=== PATIENT | male | born 1945 | race Caucasian/White ===

== ENCOUNTER 2020-07-13 23:52 | Inpatient (IN) | payer BC, MEDICARE, OTHER ==
[~2020-07-13] VITALS: Ht 176.5 cm; Wt 132.7 kg
[2020-07-14] MEDS ORDERED: methylPREDNISolone SOD SUCC 125 MG/2 ML VL IV ONE (00:30)
[2020-07-14] MEDS ORDERED: DOXYCYCLINE 100MG/250ML 250 ML IV ONE (00:30)
[2020-07-14 01:50] LABS: Basophils # (auto) 0 10 ^3/uL (0-0.2); Basophils % (auto) 0.1 % (0.0-2.0); Eosinophils # (auto) 0 10 ^3/uL (0-0.8); Hematocrit 39.2 % (41.0-53.0); Lymphocytes # (auto) 0.5 10 ^3/uL (0.4-5.4); Lymphocytes % (auto) 6.9 % (10.0-50.0); Mean Corpuscular Hemoglobin 31.1 pg (28.0-32.0); Mean Corpuscular Hgb Conc. 33.2 g/dL (32.0-36.0); Mean Corpuscular Volume 93.6 fL (80.0-100.0); Monocytes # (auto) 0.5 10 ^3/uL (0-1.3); Nucleated Red Blood Cells % 0.1 %; Platelet Count (auto) 160 10^3/uL (140-450); Red Blood Cells 4.19 10^6/uL (4.5-5.90); Red Cell Distribution Width 14.9 % (11.8-14.3)
[2020-07-14 02:06] LABS: INR 1.84 (0.9-1.15); Partial Thromboplastin Time 51.8 sec (23.0-31.2)
[2020-07-14 02:13] LABS: Alanine Aminotransferase 18 U/L (16-61); Albumin 2.7 g/dL (3.4-5.0); Anion Gap 8 (5-15); Aspartate Aminotransferase 40 U/L (15-37); BUN/Creatinine Ratio 19.1; Blood Urea Nitrogen 25 mg/dL (7-18); Calcium 7.9 mg/dL (8.5-10.1); Carbon Dioxide 24 mmol/L (21-32); Chloride 101 mmol/L (98-107); GFR African American 69 mL/min; GFR Non-African American 57 mL/min; Glucose 141 mg/dL (74-106); Sodium 133 mmol/L (136-145)
[2020-07-14 02:18] LABS: Alkaline Phosphatase 70 U/L (45-117); Bilirubin, Total 0.4 mg/dL (0.2-1.0); Total Protein 6.7 g/dL (6.4-8.2)
[2020-07-14] MEDS ORDERED: NITROGLYCERIN 0.4 MG SL TAB SL PRN ×2 (07:30→10:15)
[2020-07-14] MEDS ORDERED: DEXTROSE (50%) 50ML SYRG IV PRN ×2 (07:30→11:00)
[2020-07-14] MEDS ORDERED: DOCUSATE SOD 100 MG CAP PO PRN ×2 (07:30→10:15)
[2020-07-14] MEDS ORDERED: MORPHINE SULF INJ 2 MG/ML SYRINGE 1ML IV PRN ×2 (07:30→10:15)
[2020-07-14] MEDS ORDERED: ALBUTEROL SULF HFA 90MCG INH 200DOSE IN PRN (07:30)
[2020-07-14] MEDS ORDERED: ACETAMINOPHEN 500 MG TAB PO PRN ×2 (07:30→10:15)
[2020-07-14] MEDS ORDERED: ONDANSETRON HCL 4 MG/2 ML VIAL IV PRN ×2 (07:30→10:15)
[2020-07-14] MEDS ORDERED: HYDROcodone-ACET 5/325MG TAB PO PRN (07:30)
[2020-07-14 08:53] LABS: Cholesterol 85 mg/dL (< 200); HDL Cholesterol 43 mg/dL (40-59); LDL Cholesterol 40 mg/dL (< 100); Triglycerides 70 mg/dL (< 150)
[2020-07-14] MEDS ORDERED: CHOLECALCIFEROL (VITD3) 2,000 UNIT CAP/TAB PO SCH (10:00)
[2020-07-14] MEDS ORDERED: ZINC SULFATE 220mg CAP or TAB PO SCH (10:00)
[2020-07-14] MEDS ORDERED: ASCORBIC ACID 1,000 MG TAB PO SCH (10:00)
[2020-07-14] MEDS ORDERED: DexAMETHasone SOD PHOS 10MG/1ML VIAL INJ IV SCH (10:00)
[2020-07-14] MEDS: FAMOTIDINE (10MG/ML) 2ML VL IV SCH ×2 (10:07→20:40)
[2020-07-14] MEDS: HEPARIN SODIUM (PORCINE) 5000 UNITS/ML 1ML VIAL SC SCH ×2 (10:08→20:34)
[2020-07-14] MEDS: MULTIPLE VITAMIN TAB PO SCH (10:08)
[2020-07-14] MEDS: DOXYCYCLINE 100MG/250ML 250 ML IV SCH ×2 (10:08→20:40)
[2020-07-14] MEDS: ASPirin 81 mg TAB PO SCH (10:08)
[2020-07-14] MEDS ORDERED: RIV15T PO (10:20)
[2020-07-14 10:35] LABS: Basophils # (auto) 0 10 ^3/uL (0-0.2); Basophils % (auto) 0.2 % (0.0-2.0); Eosinophils # (auto) 0 10 ^3/uL (0-0.8); Lymphocytes # (auto) 0.3 10 ^3/uL (0.4-5.4); Lymphocytes % (auto) 5.5 % (10.0-50.0); Mean Corpuscular Hemoglobin 31.6 pg (28.0-32.0); Mean Corpuscular Hgb Conc. 34.1 g/dL (32.0-36.0); Mean Corpuscular Volume 92.9 fL (80.0-100.0); Monocytes # (auto) 0.2 10 ^3/uL (0-1.3); Monocytes % (auto) 2.7 % (0.0-12.0); Neutrophils # (auto) 5.3 10 ^3/uL (1.6-8.6); Neutrophils % (auto) 91.6 % (37.0-80.0); Platelet Count (auto) 163 10^3/uL (140-450); Red Blood Cells 4.41 10^6/uL (4.5-5.90); Red Cell Distribution Width 15.2 % (11.8-14.3); White Blood Cell 5.8 10^3/uL (4.4-10.8)
[2020-07-14] MEDS ORDERED: ACCU-CHEK COMFORT CURVE STRIP VI SCH (11:30)
[2020-07-14] MEDS ORDERED: InsuLIN REG 1unit/0.01ml Soln (100units/ml) SC SCH ×2 (11:30→22:00)
[2020-07-14] MEDS: ACCU-CHEK COMFORT CURVE STRIP VI SCH ×3 (11:48→22:30)
[2020-07-14 12:10] LABS: Albumin 2.7 g/dL (3.4-5.0); Calcium 8.1 mg/dL (8.5-10.1); Magnesium 2.3 mg/dL (1.6-2.6); Potassium 4.4 mmol/L (3.5-5.1)
[2020-07-14] MEDS: InsuLIN REG 1unit/0.01ml Soln (100units/ml) SC SCH ×3 (12:11→21:25)
[2020-07-14 12:13] LABS: BUN/Creatinine Ratio 22.8; Bilirubin, Total 0.4 mg/dL (0.2-1.0); Total Protein 7.2 g/dL (6.4-8.2)
[2020-07-14] MEDS: BUDESONIDE (INHALATION) 180 MCG IH IN SCH ×2 (12:51→19:19)
[2020-07-14] MEDS ORDERED: REMDESIVIR PER PHARMACY 0 ML IV SCH (15:15)
[2020-07-14] MEDS ORDERED: REMDESIVIR 200 MG in NS 210ml LOADING DOSE ADULT IV ONE (17:00)
[2020-07-14] MEDS ORDERED: guaiFENesin 200 MG/10 ML UD PO PRN (18:45)
[2020-07-14] MEDS: ALBUTEROL SULF HFA 90MCG INH 200DOSE IN PRN (19:19)
[2020-07-14] MEDS: FUROSEMIDE 20 MG/2 ML VIAL IV SCH (20:39)
[2020-07-15] MEDS ORDERED: METOPROLOL TARTRATE 50 MG TAB PO ONE (05:30)
[2020-07-15 06:21] LABS: Basophils # (auto) 0 10 ^3/uL (0-0.2); Basophils % (auto) 0.1 % (0.0-2.0); Eosinophils # (auto) 0 10 ^3/uL (0-0.8); Hematocrit 42.9 % (41.0-53.0); Hemoglobin 14.3 g/dL (13.5-17.5); Lymphocytes # (auto) 0.8 10 ^3/uL (0.4-5.4); Mean Corpuscular Hemoglobin 31.4 pg (28.0-32.0); Mean Corpuscular Hgb Conc. 33.4 g/dL (32.0-36.0); Mean Corpuscular Volume 93.8 fL (80.0-100.0); Monocytes # (auto) 0.9 10 ^3/uL (0-1.3); Monocytes % (auto) 5.1 % (0.0-12.0); Neutrophils # (auto) 15.1 10 ^3/uL (1.6-8.6); Neutrophils % (auto) 89.8 % (37.0-80.0); Platelet Count (auto) 204 10^3/uL (140-450); Red Blood Cells 4.57 10^6/uL (4.5-5.90); White Blood Cell 16.8 10^3/uL (4.4-10.8)
[2020-07-15 06:24] LABS: Albumin 2.9 g/dL (3.4-5.0); Calcium 8.4 mg/dL (8.5-10.1); Potassium 4.2 mmol/L (3.5-5.1)
[2020-07-15 06:29] LABS: BUN/Creatinine Ratio 26.2; Bilirubin, Total 0.4 mg/dL (0.2-1.0); Total Protein 7.5 g/dL (6.4-8.2)
[2020-07-15] MEDS: ACCU-CHEK COMFORT CURVE STRIP VI SCH ×4 (06:33→22:03)
[2020-07-15] MEDS: InsuLIN REG 1unit/0.01ml Soln (100units/ml) SC SCH ×4 (06:34→22:03)
[2020-07-15] MEDS: BUDESONIDE (INHALATION) 180 MCG IH IN SCH ×2 (07:59→19:30)
[2020-07-15] MEDS: ALBUTEROL SULF HFA 90MCG INH 200DOSE IN PRN ×2 (07:59→19:30)
[2020-07-15] MEDS: DexAMETHasone SOD PHOS 10MG/1ML VIAL INJ IV SCH (08:01)
[2020-07-15] MEDS: FUROSEMIDE 20 MG/2 ML VIAL IV SCH ×2 (08:01→22:07)
[2020-07-15] MEDS: CHOLECALCIFEROL (VITD3) 2,000 UNIT CAP/TAB PO SCH (08:02)
[2020-07-15] MEDS: MULTIPLE VITAMIN TAB PO SCH (08:02)
[2020-07-15] MEDS: ASPirin 81 mg TAB PO SCH (08:02)
[2020-07-15] MEDS: FAMOTIDINE (10MG/ML) 2ML VL IV SCH ×2 (08:02→22:05)
[2020-07-15] MEDS: ASCORBIC ACID 1,000 MG TAB PO SCH (08:02)
[2020-07-15] MEDS: ZINC SULFATE 220mg CAP or TAB PO SCH (08:02)
[2020-07-15] MEDS: DOXYCYCLINE 100MG/250ML 250 ML IV SCH ×2 (08:02→21:58)
[2020-07-15] MEDS: METOPROLOL TARTRATE 50 MG TAB PO SCH ×2 (08:02→22:00)
[2020-07-15] MEDS: HEPARIN SODIUM (PORCINE) 5000 UNITS/ML 1ML VIAL SC SCH ×2 (08:03→22:00)
[2020-07-15] MEDS: REMDESIVIR 100mg 100 MG in SODIUM CHL 0.9% 230 ML IV SCH (15:45)
[2020-07-15 16:00] VITALS: BP 123/80
[2020-07-15] MEDS ORDERED: TEMAZEPAM 15 MG CAP PO ONE (20:30)
[2020-07-16] VITALS: BP 98/77
[2020-07-16 05:45] LABS: Basophils # (auto) 0 10 ^3/uL (0-0.2); Eosinophils # (auto) 0 10 ^3/uL (0-0.8); Hematocrit 39.9 % (41.0-53.0); Hemoglobin 13.4 g/dL (13.5-17.5); Lymphocytes # (auto) 0.7 10 ^3/uL (0.4-5.4); Lymphocytes % (auto) 4.2 % (10.0-50.0); Mean Corpuscular Hemoglobin 31.3 pg (28.0-32.0); Mean Corpuscular Hgb Conc. 33.6 g/dL (32.0-36.0); Mean Corpuscular Volume 93.2 fL (80.0-100.0); Monocytes # (auto) 0.8 10 ^3/uL (0-1.3); Monocytes % (auto) 4.6 % (0.0-12.0); Neutrophils # (auto) 15.8 10 ^3/uL (1.6-8.6); Neutrophils % (auto) 91.2 % (37.0-80.0); Platelet Count (auto) 210 10^3/uL (140-450); Red Blood Cells 4.27 10^6/uL (4.5-5.90); Red Cell Distribution Width 15.3 % (11.8-14.3); White Blood Cell 17.4 10^3/uL (4.4-10.8)
[2020-07-16 06:05] LABS: Potassium 4.5 mmol/L (3.5-5.1)
[2020-07-16 06:25] LABS: Albumin 2.6 g/dL (3.4-5.0); Bilirubin, Total 0.4 mg/dL (0.2-1.0); CRP High Sensitivity 5.43 mg/dL (< 0.3); Calcium 8.1 mg/dL (8.5-10.1); Total Protein 6.7 g/dL (6.4-8.2)
[2020-07-16] MEDS: ACCU-CHEK COMFORT CURVE STRIP VI SCH ×4 (06:33→21:47)
[2020-07-16] MEDS: InsuLIN REG 1unit/0.01ml Soln (100units/ml) SC SCH ×4 (06:33→21:47)
[2020-07-16] MEDS: ALBUTEROL SULF HFA 90MCG INH 200DOSE IN PRN ×2 (07:54→22:33)
[2020-07-16] MEDS: BUDESONIDE (INHALATION) 180 MCG IH IN SCH ×2 (07:54→22:00)
[2020-07-16 08:00] VITALS: BP 106/77
[2020-07-16] MEDS: FUROSEMIDE 20 MG/2 ML VIAL IV SCH ×2 (09:10→21:25)
[2020-07-16] MEDS: ZINC SULFATE 220mg CAP or TAB PO SCH (09:10)
[2020-07-16] MEDS: ASPirin 81 mg TAB PO SCH (09:11)
[2020-07-16] MEDS: MULTIPLE VITAMIN TAB PO SCH (09:11)
[2020-07-16] MEDS: ASCORBIC ACID 1,000 MG TAB PO SCH (09:11)
[2020-07-16] MEDS: METOPROLOL TARTRATE 50 MG TAB PO SCH ×2 (09:11→21:25)
[2020-07-16] MEDS: DexAMETHasone SOD PHOS 10MG/1ML VIAL INJ IV SCH (09:12)
[2020-07-16] MEDS: CHOLECALCIFEROL (VITD3) 2,000 UNIT CAP/TAB PO SCH (09:12)
[2020-07-16] MEDS: HEPARIN SODIUM (PORCINE) 5000 UNITS/ML 1ML VIAL SC SCH (09:30)
[2020-07-16] MEDS: FAMOTIDINE (10MG/ML) 2ML VL IV SCH ×2 (10:03→21:25)
[2020-07-16] MEDS: DOXYCYCLINE 100MG/250ML 250 ML IV SCH ×2 (10:03→21:24)
[2020-07-16] MEDS: REMDESIVIR 100mg 100 MG in SODIUM CHL 0.9% 230 ML IV SCH (15:00)
[2020-07-16 16:00] VITALS: BP 127/74
[2020-07-16] MEDS: RIVAROXABAN 20 MG TAB PO SCH (18:20)
[2020-07-16 23:30] VITALS: BP 116/76
[2020-07-17] MEDS: InsuLIN REG 1unit/0.01ml Soln (100units/ml) SC SCH ×4 (06:24→22:02)
[2020-07-17] MEDS: ACCU-CHEK COMFORT CURVE STRIP VI SCH ×4 (06:25→22:03)
[2020-07-17 07:42] VITALS: BP 117/62
[2020-07-17 08:06] LABS: Albumin 2.4 g/dL (3.4-5.0); Potassium 4.7 mmol/L (3.5-5.1)
[2020-07-17 08:13] LABS: BUN/Creatinine Ratio 37.1; Bilirubin, Total 0.5 mg/dL (0.2-1.0); CRP High Sensitivity 4.23 mg/dL (< 0.3); Total Protein 6.5 g/dL (6.4-8.2)
[2020-07-17] MEDS: BUDESONIDE (INHALATION) 180 MCG IH IN SCH ×2 (09:31→20:01)
[2020-07-17] MEDS ORDERED: ENOXAPARIN SOD 40 MG/0.4 ML SYRINGE SC SCH (10:00)
[2020-07-17] MEDS: DexAMETHasone SOD PHOS 10MG/1ML VIAL INJ IV SCH (10:04)
[2020-07-17] MEDS: FAMOTIDINE (10MG/ML) 2ML VL IV SCH ×2 (10:05→22:01)
[2020-07-17] MEDS: FUROSEMIDE 20 MG/2 ML VIAL IV SCH ×2 (10:05→22:01)
[2020-07-17] MEDS: ASPirin 81 mg TAB PO SCH (10:06)
[2020-07-17] MEDS: ZINC SULFATE 220mg CAP or TAB PO SCH (10:06)
[2020-07-17] MEDS: DOXYCYCLINE 100MG/250ML 250 ML IV SCH ×2 (10:06→22:01)
[2020-07-17] MEDS: METOPROLOL TARTRATE 50 MG TAB PO SCH ×2 (10:07→22:01)
[2020-07-17] MEDS: ASCORBIC ACID 1,000 MG TAB PO SCH (10:08)
[2020-07-17] MEDS: MULTIPLE VITAMIN TAB PO SCH (10:08)
[2020-07-17] MEDS: CHOLECALCIFEROL (VITD3) 2,000 UNIT CAP/TAB PO SCH (10:08)
[2020-07-17] MEDS: REMDESIVIR 100mg 100 MG in SODIUM CHL 0.9% 230 ML IV SCH (15:23)
[2020-07-17 15:39] VITALS: BP 112/68
[2020-07-17] MEDS: RIVAROXABAN 20 MG TAB PO SCH (17:35)
[2020-07-17] MEDS: ALBUTEROL SULF HFA 90MCG INH 200DOSE IN PRN (20:00)
[2020-07-18] VITALS: BP 108/69
[2020-07-18 06:04] LABS: Basophils # (auto) 0 10 ^3/uL (0-0.2); Eosinophils # (auto) 0 10 ^3/uL (0-0.8); Hematocrit 41.5 % (41.0-53.0); Lymphocytes # (auto) 0.7 10 ^3/uL (0.4-5.4); Mean Corpuscular Hemoglobin 31.2 pg (28.0-32.0); Mean Corpuscular Hgb Conc. 33.7 g/dL (32.0-36.0); Mean Corpuscular Volume 92.4 fL (80.0-100.0); Monocytes # (auto) 0.9 10 ^3/uL (0-1.3); Monocytes % (auto) 5.2 % (0.0-12.0); Neutrophils # (auto) 16.5 10 ^3/uL (1.6-8.6); Neutrophils % (auto) 90.8 % (37.0-80.0); Nucleated Red Blood Cells % 0.1 %; Platelet Count (auto) 260 10^3/uL (140-450); White Blood Cell 18.1 10^3/uL (4.4-10.8)
[2020-07-18 06:33] LABS: Calcium 8.3 mg/dL (8.5-10.1); Potassium 4.3 mmol/L (3.5-5.1)
[2020-07-18 06:43] LABS: Albumin 2.6 g/dL (3.4-5.0); BUN/Creatinine Ratio 38.6; Bilirubin, Total 0.6 mg/dL (0.2-1.0); CRP High Sensitivity 2.98 mg/dL (< 0.3); Total Protein 6.6 g/dL (6.4-8.2)
[2020-07-18] MEDS: InsuLIN REG 1unit/0.01ml Soln (100units/ml) SC SCH ×4 (06:48→22:04)
[2020-07-18] MEDS: ACCU-CHEK COMFORT CURVE STRIP VI SCH ×4 (06:48→22:04)
[2020-07-18] MEDS: BUDESONIDE (INHALATION) 180 MCG IH IN SCH ×2 (07:29→20:23)
[2020-07-18] MEDS: ALBUTEROL SULF HFA 90MCG INH 200DOSE IN PRN ×2 (07:29→20:23)
[2020-07-18 08:00] VITALS: BP 110/53
[2020-07-18] MEDS: ZINC SULFATE 220mg CAP or TAB PO SCH (08:53)
[2020-07-18] MEDS: FUROSEMIDE 20 MG/2 ML VIAL IV SCH ×2 (08:53→22:00)
[2020-07-18] MEDS: ASPirin 81 mg TAB PO SCH (08:53)
[2020-07-18] MEDS: DOXYCYCLINE 100MG/250ML 250 ML IV SCH ×2 (08:53→22:35)
[2020-07-18] MEDS: METOPROLOL TARTRATE 50 MG TAB PO SCH ×2 (08:54→22:00)
[2020-07-18] MEDS: CHOLECALCIFEROL (VITD3) 2,000 UNIT CAP/TAB PO SCH (08:54)
[2020-07-18] MEDS: ASCORBIC ACID 1,000 MG TAB PO SCH (08:54)
[2020-07-18] MEDS: MULTIPLE VITAMIN TAB PO SCH (08:54)
[2020-07-18] MEDS: DexAMETHasone SOD PHOS 10MG/1ML VIAL INJ IV SCH (11:33)
[2020-07-18] MEDS: FAMOTIDINE (10MG/ML) 2ML VL IV SCH ×2 (11:33→22:35)
[2020-07-18] MEDS: REMDESIVIR 100mg 100 MG in SODIUM CHL 0.9% 230 ML IV SCH (15:12)
[2020-07-18 16:00] VITALS: BP 106/71
[2020-07-18] MEDS: RIVAROXABAN 20 MG TAB PO SCH (17:13)
[2020-07-19] VITALS: BP 103/69
[2020-07-19] MEDS: InsuLIN REG 1unit/0.01ml Soln (100units/ml) SC SCH ×4 (06:58→21:56)
[2020-07-19] MEDS: ACCU-CHEK COMFORT CURVE STRIP VI SCH ×4 (06:58→21:11)
[2020-07-19 07:03] LABS: Potassium 4.5 mmol/L (3.5-5.1)
[2020-07-19 07:19] LABS: Albumin 2.5 g/dL (3.4-5.0); BUN/Creatinine Ratio 41.1; Bilirubin, Total 0.6 mg/dL (0.2-1.0); CRP High Sensitivity 1.71 mg/dL (< 0.3); Calcium 8.2 mg/dL (8.5-10.1); Total Protein 6.3 g/dL (6.4-8.2)
[2020-07-19 08:30] VITALS: BP 117/89
[2020-07-19] MEDS: METOPROLOL TARTRATE 50 MG TAB PO SCH ×2 (10:17→21:08)
[2020-07-19] MEDS: ASPirin 81 mg TAB PO SCH (10:17)
[2020-07-19] MEDS: FAMOTIDINE (10MG/ML) 2ML VL IV SCH ×2 (10:17→21:08)
[2020-07-19] MEDS: ASCORBIC ACID 1,000 MG TAB PO SCH (10:18)
[2020-07-19] MEDS: ZINC SULFATE 220mg CAP or TAB PO SCH (10:18)
[2020-07-19] MEDS: MULTIPLE VITAMIN TAB PO SCH (10:18)
[2020-07-19] MEDS: CHOLECALCIFEROL (VITD3) 2,000 UNIT CAP/TAB PO SCH (10:18)
[2020-07-19] MEDS: DexAMETHasone SOD PHOS 10MG/1ML VIAL INJ IV SCH (10:18)
[2020-07-19] MEDS: FUROSEMIDE 20 MG/2 ML VIAL IV SCH ×2 (10:19→21:09)
[2020-07-19] MEDS: BUDESONIDE (INHALATION) 180 MCG IH IN SCH ×2 (10:26→19:28)
[2020-07-19 15:57] VITALS: BP 116/79
[2020-07-19] MEDS: RIVAROXABAN 20 MG TAB PO SCH (17:25)
[2020-07-19] MEDS: ALBUTEROL SULF HFA 90MCG INH 200DOSE IN PRN (19:28)
[2020-07-20 00:17] VITALS: BP 115/80
[2020-07-20] MEDS: ALBUTEROL SULF HFA 90MCG INH 200DOSE IN PRN (06:32)
[2020-07-20] MEDS: BUDESONIDE (INHALATION) 180 MCG IH IN SCH (06:32)
[2020-07-20] MEDS: InsuLIN REG 1unit/0.01ml Soln (100units/ml) SC SCH (07:00)
[2020-07-20] MEDS: ACCU-CHEK COMFORT CURVE STRIP VI SCH (07:30)
[2020-07-20 08:00] VITALS: BP 121/83
[2020-07-20 08:11] LABS: Hematocrit 45.9 % (41.0-53.0); Hemoglobin 15.8 g/dL (13.5-17.5); Mean Corpuscular Hemoglobin 31.8 pg (28.0-32.0); Mean Corpuscular Hgb Conc. 34.4 g/dL (32.0-36.0); Mean Corpuscular Volume 92.5 fL (80.0-100.0); Platelet Count (auto) 406 10^3/uL (140-450); Red Blood Cells 4.96 10^6/uL (4.5-5.90); Red Cell Distribution Width 15.4 % (11.8-14.3); White Blood Cell 22.2 10^3/uL (4.4-10.8)
[2020-07-20 08:28] LABS: Basophils % (manual) 0 (0.0-2.0); Blast Cells 0; Eosinophils % (manual) 0 (0-7); Myelocytes % 0; Promyelocytes % 0; Reactive Lymphocytes 0
[2020-07-20 08:30] LABS: Potassium 4.4 mmol/L (3.5-5.1)
[2020-07-20 08:48] LABS: BUN/Creatinine Ratio 38.7; Bilirubin, Total 0.7 mg/dL (0.2-1.0); CRP High Sensitivity 1.32 mg/dL (< 0.3); Calcium 8.7 mg/dL (8.5-10.1); Total Protein 7.4 g/dL (6.4-8.2)
[2020-07-20] MEDS: FUROSEMIDE 20 MG/2 ML VIAL IV SCH (08:54)
[2020-07-20] MEDS: DexAMETHasone SOD PHOS 10MG/1ML VIAL INJ IV SCH (08:54)
[2020-07-20] MEDS: FAMOTIDINE (10MG/ML) 2ML VL IV SCH (08:55)
[2020-07-20] MEDS: ZINC SULFATE 220mg CAP or TAB PO SCH (08:55)
[2020-07-20] MEDS: ASPirin 81 mg TAB PO SCH (08:55)
[2020-07-20] MEDS: METOPROLOL TARTRATE 50 MG TAB PO SCH (08:55)
[2020-07-20] MEDS: ASCORBIC ACID 1,000 MG TAB PO SCH (08:56)
[2020-07-20] MEDS: MULTIPLE VITAMIN TAB PO SCH (08:56)
[2020-07-20] MEDS: CHOLECALCIFEROL (VITD3) 2,000 UNIT CAP/TAB PO SCH (08:56)
[2020-07-20 10:18] VITALS: BP 124/98
[2020-07-20 12:33] LABS: Band Neutrophils % (manual) 23; Lymphocytes % (manual) 5 (10.0-50.0); Metamyelocytes % 3; Monocytes % (manual) 2 (0-12)
== END 2020-07-20 10:45 | disposition home or self-care (01) | DRG 871 ==
LOC: ER 23:52 → EDBD 23:52 → TELE 23:53 → TELE-WESTW 07-15 14:47
PROVIDERS: ADMIT Hospitalist; ATTEND Hospitalist
PROC: XW033E5 Introduction of Remdesivir Anti-infective into Peripheral Vein, Percutaneous Approach, New Technology Group 5 (ICD-10-PCS; principal; 2020-07-14)
PROC: 5A09357 Assistance with Respiratory Ventilation, Less than 24 Consecutive Hours, Continuous Positive Airway Pressure (ICD-10-PCS; 2020-07-17)
PROC: 5A09357 Assistance with Respiratory Ventilation, Less than 24 Consecutive Hours, Continuous Positive Airway Pressure (ICD-10-PCS; 2020-07-18)
PROC: 5A09357 Assistance with Respiratory Ventilation, Less than 24 Consecutive Hours, Continuous Positive Airway Pressure (ICD-10-PCS; 2020-07-19)
DX: A41.89 Other specified sepsis (principal); U07.1 COVID-19; J96.01 Acute respiratory failure with hypoxia; J12.82 Pneumonia due to coronavirus disease 2019; I48.20 Chronic atrial fibrillation, unspecified; N17.9 Acute kidney failure, unspecified; I13.0 Hypertensive heart and chronic kidney disease with heart failure and stage 1 through stage 4 chronic kidney disease, or unspecified chronic kidney disease; J98.11 Atelectasis; Z68.41 Body mass index [BMI] 40.0-44.9, adult; E11.22 Type 2 diabetes mellitus with diabetic chronic kidney disease; I50.9 Heart failure, unspecified; I25.10 Atherosclerotic heart disease of native coronary artery without angina pectoris; E66.01 Morbid (severe) obesity due to excess calories; Z79.01 Long term (current) use of anticoagulants; N18.31 Chronic kidney disease, stage 3a
CPT/HCPCS: 36415; 71045; 80053; 80061; 82306; 82728; 82962; 83036; 83605; 83615; 83735; 83880; 84443; 84484; 85007; 85025; 85027; 85379; 85610; 85730; 86141; 87040; 87426; 93005; 93306; 93970; 94640; 94660; 96365; 96375; 99291; G0378; J1100; J1815; J3490